=== PATIENT | male | born 1945 | race Caucasian/White ===

== ENCOUNTER 2019-11-14 18:22 | Emergency (ER) | payer MEDICAID, OTHER ==
[~2019-11-14] VITALS: Ht 175.3 cm; Wt 54.0 kg
--- NOTE | 2019-11-14 18:56 | NUR ---
ERMD at bedside for MSE
[2019-11-14] MEDS ORDERED: ACETAMINOPHEN ES 500 MG TABLET PO ONE (19:00)
[2019-11-14] MEDS ORDERED: predniSONE 20 MG TABLET PO ONE (19:00)
[2019-11-14] MEDS ORDERED: ACETAMINOPHEN ES 500 MG TABLET ONE (19:19)
[2019-11-14] MEDS ORDERED: predniSONE 20 MG TABLET ONE (19:20)
--- NOTE | 2019-11-14 19:25 | NUR ---
Patient discharged to home in stable conditon. Written and verbal after care instructions given. Patient verbalizes understanding of instructions. Patient ambulated with stable gait.
[2019-11-14 19:26] VITALS: BP 121/63
== END 2019-11-14 19:27 | disposition home or self-care (01) ==
LOC: ER 18:24
DX: M54.42 Lumbago with sciatica, left side (principal)
CPT/HCPCS: 99283; J7512; A4663; A9150